=== PATIENT | male | born 1935 | race Caucasian/White ===

== ENCOUNTER 2019-03-04 09:45 | Day surgery (SDC) | payer MEDICARE, BC ==
--- NOTE | 2019-03-04 09:43 | HP ---
DATE OF SURGERY: 03/04/2019 HISTORY OF PRESENT ILLNESS: The patient is an 83 year-old with some epigastric pain, family history of a brother passing away with esophageal cancer, now in need of follow up upper endoscopy. He has seen Dr. Dunaway in the past but asked if we could go ahead and proceed with upper endoscopy at this point. PAST MEDICAL/PAST SURGICAL HISTORY: Prostate removal. Right arm surgery. 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 Colonoscopy in the past. Upper endoscopy in the past by Dr. Dunaway according to the patient. He prefers we go ahead and proceed with upper endoscopy. MEDICATIONS: He takes [id number] AloeCure. Otherwise denies any medication. ALLERGIES: SULFA. FAMILY HISTORY: History of esophageal cancer according to the patient. SOCIAL HISTORY: He denied smoking, drinks occasionally denies alcohol abuse. REVIEW OF SYSTEMS: Fourteen systems reviewed per admission assessment. No chest pain or palpitations other systems negative or noncontributory as above and per preadmission questionnaire. PHYSICAL EXAMINATION: GENERAL: No acute distress. HEENT: Sclerae nonicteric. NECK: No JVD. CHEST: Equal excursion, nonlabored breathing. CVS: Regular rate and rhythm. ABDOMEN: Soft. No peritoneal signs. EXTREMITIES: No significant edema. NEURO: Alert, oriented, moving extremities symmetrically. No gross motor deficits noted. IMPRESSION: History of some epigastric pain at times. Family history of brother passing away from esophageal cancer. He is in need of follow up upper endoscopy for evaluation possible biopsy. Risks and benefits explained in detail including but not limited to bleeding or infection, risk of bowel injury or perforation possibly requiring open procedure, risk of missed or nondiagnosis or incomplete exam possibly requiring barium swallow, other studies or procedures, general risk of anesthesia or sedation but not limited to. He understands and agrees to the planned procedure and will proceed with outpatient EGD possible biopsy as an outpatient under MAC anesthesia.
[~2019-03-04 09:45] MED LIST: Lactated Ringers 1,000 ML IV SCH
[2019-03-04] MEDS ORDERED: Lactated Ringers 1,000 ML IV ONE (09:56)
[2019-03-04] MEDS ORDERED: DIPRIVAN 200 MG/20 ML IV ONE (12:02)
[2019-03-04] MEDS ORDERED: Ketamine HCl 50 MG/ML ONE (12:03)
[2019-03-04 13:35] VITALS: BP 145/78; PULSE 50; O2SAT 98
--- NOTE | 2019-03-04 14:21 | OP ---
SURGERY DATE/TIME: 03/04/2019 1217 PREOPERATIVE DIAGNOSES: 1) Family history of esophageal cancer. 2) Epigastric pain, need for upper endoscopy. POSTOPERATIVE DIAGNOSES: 1) Minimal gastritis or gastropathy. 2) Short segment plus/minus early distal gastroesophagitis versus normal variation of gastroesophageal junction. PROCEDURES: 1) EGD with cold biopsy small bowel to evaluate for celiac sprue. 2) Cold biopsy of the antrum to evaluate for Helicobacter pylori. 3) Cold biopsy distal esophagus to gastroesophageal junction to evaluate for gastroesophagitis versus normal variation of gastroesophageal junction. 4) Random cold biopsies of esophagus to evaluate for eosinophilic esophagitis. SURGEON: Dr. Daryl Roe. ANESTHESIA: MAC. ESTIMATED BLOOD LOSS: Minimal. INDICATIONS: As noted above. Risks and benefits explained in detail and not limited to and consent obtained. DESCRIPTION OF PROCEDURE AND FINDINGS: The patient is taken to the endoscopy room. MAC anesthesia introduced. After official time out and no disagreement with planned procedure, a bite block positioned. Video gastroscope easily passed down the esophagus through the patent pylorus to the junction of the second and third portion of the duodenum. No signs of any ulcers or masses. Given his epigastric complaints, cold biopsy taken to evaluate for celiac sprue. Good hemostasis noted. The scope pulled back in the stomach. He had some mild gastric erythema. A cold biopsy taken to evaluate for Helicobacter pylori. Good hemostasis noted. On retroflex gastroesophageal junction snug against the scope. Scope straightened. Gastroesophageal junction noted to be about 40 to 41 cm. The Z-line was fairly crisp. There was a little bit of jagged edge and one little tiny island whether this is Stahl's or distal gastroesophagitis cold biopsies are taken in this margin. Good hemostasis noted. Otherwise random cold biopsies taken further up in the esophagus to evaluate for eosinophilic esophagitis. Good hemostasis noted. Otherwise there were no signs of any obvious esophageal mucosal lesions on withdrawal up through the esophagus. The patient tolerated the procedure well. Findings discussed with the family out in the waiting area.
== END 2019-03-04 13:36 | disposition home or self-care (01) ==
LOC: SDC 09:45
PROVIDERS: ATTEND Surgery
DX: K29.70 Gastritis, unspecified, without bleeding (principal); Z80.0 Family history of malignant neoplasm of digestive organs
CPT/HCPCS: 87081; 88305; 99100; J2704

== ENCOUNTER 2020-10-18 07:19 | Emergency (ER) | payer MEDICARE, BC ==
--- NOTE | 2020-10-18 07:47 | ERPHSYRPT ---
- History of Present Illness Time Seen by Provider: 10/18/20 07:41 Historian: patient, old records Exam Limitations: no limitations Patient Subjective Stated Complaint: Constipation Triage Nursing Assessment: Patient ambulated back to ED and transferred self to bed. Patient A+O X3. Patient's skin pink, warm and dry. Patient complains of constipation for for 5 days. Last BM was 10/14/2020. Patient denies pain or discomfort, but complains of being "Full". Abdomen soft and round with BS X 4. Patient denies N/V. Patient reports passing gas. Physician History: Pt reports that he was seen in ER 2 days ago for right abd pain and US CT with dye were all negative as well as labs. No pain today but feels full , and alt kirill no vomiting , he has not eaten in last 24 hours. Abd is distended but nontender without peritoneal signs or masses. Denies Hx of heart Dx or afib, but epigastric fullness , so will check EKG and Trops. Timing/Duration: day(s) Activities at Onset: none Quality: other (was right abd pain , now resolved) Abdominal Pain Onset Location: RUQ, RLQ Pain Radiation: no radiation Severity of Pain-Max: moderate Severity of Pain-Current: none Modifying Factors: Improves With: nothing Associated Symptoms: loss of appetite Previous symptoms: different symptoms, recently seen Allergies/Adverse Reactions: No Known Drug Allergies Allergy (Unverified 10/18/20 07:27) Home Medications: Aloe Vera 25 mg PO DAILY 03/04/19 [History] Hx Influenza Vaccination/Date Given: Yes Hx Pneumococcal Vaccination/Date Given: Yes Immunizations Up to Date: Yes Travel Risk - International Travel Have you traveled outside of the country in past 3 weeks: No - Coronavirus Screening Are you exhibiting any of the following symptoms?: No Close contact with a COVID-19 positive Pt in past 14-21 Days: No - Review of Systems Constitutional: No Fever, No Chills Eyes: No Symptoms Ears, Nose, & Throat: No Symptoms Respiratory: No Cough, No Dyspnea Cardiac: No Chest Pain, No Edema, No Syncope Abdominal/Gastrointestinal: Abdominal Pain (right abd pain , now resolved), No Nausea, No Vomiting, No Diarrhea Genitourinary Symptoms: No Dysuria Musculoskeletal: No Back Pain, No Neck Pain Skin: No Symptoms, No Rash Neurological: No Dizziness, No Focal Weakness, No Sensory Changes Psychological: No Symptoms Endocrine: No Symptoms All Other Systems: Reviewed and Negative - Past Medical History Pertinent Past Medical History: Yes Neurological History: No Pertinent History ENT History: No Pertinent History Cardiac History: No Pertinent History Respiratory History: No Pertinent History Endocrine Medical History: No Pertinent History Musculoskeletal History: No Pertinent History GI Medical History: GERD History: No Pertinent History Psycho-Social History: No Pertinent History Male Reproductive Disorders: Prostate Cancer Other Medical History: eye CA. - Past Surgical History Past Surgical History: Yes Neuro Surgical History: No Pertinent History Cardiac: No Pertinent History Respiratory: No Pertinent History Gastrointestinal: No Pertinent History Genitourinary: No Pertinent History Musculoskeletal: Other Male Surgical History: Prostate Surgery Other Surgical History: R wrist reconstruction - Social History Smoking Status: Never smoker Exposure to second hand smoke: No Drug Use: none Patient Lives Alone: No - Nursing Vital Signs Nursing Vital Signs: Initial Vital Signs Temperature 97.8 F 10/18/20 07:29 Pulse Rate 62 10/18/20 07:29 Respiratory Rate 18 10/18/20 07:29 Blood Pressure 148/75 10/18/20 07:29 Pain Scale Pain Intensity 0 - Physical Exam General Appearance: no apparent distress, alert Eye Exam: PERRL/EOMI, eyes nml inspection Ears, Nose, Throat Exam: normal ENT inspection, pharynx normal, moist mucous membranes Neck Exam: normal inspection, non-tender, supple, full range of motion Respiratory Exam: normal breath sounds, lungs clear, No respiratory distress Cardiovascular Exam: regular rate/rhythm, normal heart sounds Gastrointestinal/Abdomen Exam: soft, distention, No tenderness, No mass, No guarding, No pulsatile mass, No rebound, No hernia Male Genitalia Exam: normal genitalia, other (no palable hernias), No hernia Rectal Exam: normal exam, normal rectal tone Back Exam: normal inspection, normal range of motion, No CVA tenderness, No vertebral tenderness Extremity Exam: normal inspection, normal range of motion, pelvis stable Neurologic Exam: alert, oriented x 3, cooperative, normal mood/affect, nml cerebellar function, sensation nml, No motor deficits Skin Exam: normal color, warm, dry SpO2 Interpretation: normal O2 Delivery: Room Air - Course Nursing assessment & vital signs reviewed: Yes EKG Interpreted by Me: Sinus Rhythm, NORMAL AXIS, NORMAL INTERVALS, NORMAL QRS, Non-specific ST Changes - Radiology Exams Chest X-ray Interpretation: Interpreted by me, Reviewed by me, No Pneumonia, No Pneumothorax, Other (scattered granulomata) Abdomen X-ray Interpretation: Interpreted by me, Reviewed by me, Other (scattered bowel gas and stool , nonobst pattern) Ordered Tests: Active Orders 24 hr Category Date Time Status EKG-ER Only STAT Care 10/18/20 07:48 Active Enema STAT Care 10/18/20 07:50 Active Enema STAT Care 10/18/20 08:48 Active IV Insertion STAT Care 10/18/20 07:48 Active NPO (ED) STAT Care 10/18/20 07:48 Active OBSTR/ACUTE ABDOMEN SERIES Stat Exams 10/18/20 07:49 Completed AMYLASE Stat Lab 10/18/20 07:40 Completed CBC W DIFF Stat Lab 10/18/20 07:40 Completed CMP Stat Lab 10/18/20 07:40 Completed LIPASE Stat Lab 10/18/20 07:40 Completed Lactic Acid Stat Lab 10/18/20 07:53 Completed TROPONIN Q3H Lab 10/18/20 07:40 Completed TROPONIN Q3H Lab 10/18/20 11:00 Ordered TROPONIN Q3H Lab 10/18/20 14:00 Ordered TROPONIN Q3H Lab 10/18/20 17:00 Ordered TROPONIN Q3H Lab 10/18/20 20:00 Ordered UA W/RFX UR CULTURE Stat Lab 10/18/20 07:52 Completed Medication Summary Generic Name Dose Route Start Last Admin Trade Name Freq PRN Reason Stop Dose Admin Sodium Chloride 1,000 mls @ 100 mls/hr 10/18/20 08:00 10/18/20 07:54 Sodium Chloride 0.9% 1000 Ml IV 11/17/20 07:59 100 mls/hr .Q10H YOGI Administration Discontinued Medications Generic Name Dose Route Start Last Admin Trade Name Freq PRN Reason Stop Dose Admin Magnesium Hydroxide 30 ml 10/18/20 08:23 10/18/20 08:25 Milk Of Magnesia 30 Ml PO 10/18/20 08:24 30 ml STAT ONE Administration Magnesium Hydroxide Confirm 10/18/20 08:24 Milk Of Magnesia 30 Ml Administered 10/18/20 08:25 Dose 30 ml .ROUTE .[employer] Lab/Rad Data: Laboratory Result Diagrams 10/18/20 07:40 10/18/20 07:40 Laboratory Results 10/18/20 10/18/20 10/18/20 Range/Units 07:53 07:52 07:40 WBC (4.0-10.5) K/mm3 RBC (4.1-5.6) M/mm3 Hgb (12.5-18.0) gm/dl Hct (42-50) % MCV (78-100) fl MCH (26-32) pg MCHC (32-36) g/dl RDW (11.5-14.0) % Plt Count (150-450) K/mm3 MPV (7.5-11.0) fl Gran % (36.0-66.0) % Eos # (Auto) (0-0.5) Absolute Lymphs (auto) (1.0-4.6) Absolute Monos (auto) (0.0-1.3) Lymphocytes % (24.0-44.0) % Monocytes % (0.0-12.0) % Eosinophils % (0.00-5.0) % Basophils % (0.0-0.4) % Absolute Granulocytes (1.4-6.9) Basophils # (0-0.4) Sodium (137-145) mmol/L Potassium (3.5-5.1) mmol/L Chloride (98-107) mmol/L Carbon Dioxide (22-30) mmol/L Anion Gap (5-15) MEQ/L BUN (9-20) mg/dL Creatinine (0.66-1.25) mg/dL Estimated GFR ML/MIN Glucose (74-106) mg/dL Lactic Acid 0.8 (0.4-2.0) Calcium (8.4-10.2) mg/dL Total Bilirubin (0.2-1.3) mg/dL AST (17-59) U/L ALT (0-50) U/L Alkaline Phosphatase (38-126) U/L Troponin I < 0.012 (0.000-0.034) ng/mL Serum Total Protein (6.3-8.2) g/dL Albumin (3.5-5.0) g/dL Amylase (30-110) U/L Lipase (23-300) U/L Urine Color YELLOW (YELLOW) Urine Appearance CLEAR (CLEAR) Urine pH 6.0 (5-6) Ur Specific [place] 1.013 (1.005-1.025) Urine Protein NEGATIVE (Negative) Urine Ketones NEGATIVE (NEGATIVE) Urine Blood SMALL (0-5) Roshan/ul Urine Nitrite NEGATIVE (NEGATIVE) Urine Bilirubin NEGATIVE (NEGATIVE) Urine Urobilinogen NEGATIVE (0-1) mg/dL Ur Leukocyte Esterase NEGATIVE (NEGATIVE) Urine WBC (Auto) NONE (0-5) /HPF Urine RBC (Auto) 0-2 (0-2) /HPF U Hyaline Cast (Auto) 0-2 (0-2) /LPF U Epithel Cells (Auto) RARE (FEW) /HPF Urine Bacteria (Auto) NONE (NEGATIVE) /HPF Urine Mucus (Auto) SLIGHT (NEGATIVE) /HPF Urine Culture Reflexed NO (NO) Urine Glucose NEGATIVE (NEGATIVE) mg/dL 10/18/20 10/18/20 Range/Units 07:40 07:40 WBC 4.8 (4.0-10.5) K/mm3 RBC 4.15 (4.1-5.6) M/mm3 Hgb 13.4 (12.5-18.0) gm/dl Hct 40.1 L (42-50) % MCV 96.6 (78-100) fl MCH 32.3 H (26-32) pg MCHC 33.4 (32-36) g/dl RDW 13.4 (11.5-14.0) % Plt Count 229 (150-450) K/mm3 MPV 10.0 (7.5-11.0) fl Gran % 48.6 (36.0-66.0) % Eos # (Auto) 0.13 (0-0.5) Absolute Lymphs (auto) 1.91 (1.0-4.6) Absolute Monos (auto) 0.42 (0.0-1.3) Lymphocytes % 39.6 (24.0-44.0) % Monocytes % 8.7 (0.0-12.0) % Eosinophils % 2.7 (0.00-5.0) % Basophils % 0.4 (0.0-0.4) % Absolute Granulocytes 2.34 (1.4-6.9) Basophils # 0.02 (0-0.4) Sodium 137 (137-145) mmol/L Potassium 4.2 (3.5-5.1) mmol/L Chloride 101 (98-107) mmol/L Carbon Dioxide 26 (22-30) mmol/L Anion Gap 13.6 (5-15) MEQ/L BUN 18 (9-20) mg/dL Creatinine 1.39 H (0.66-1.25) mg/dL Estimated GFR 51.9 ML/MIN Glucose 110 H (74-106) mg/dL Lactic Acid (0.4-2.0) Calcium 10.0 (8.4-10.2) mg/dL Total Bilirubin 0.80 (0.2-1.3) mg/dL AST 23 (17-59) U/L ALT 14 (0-50) U/L Alkaline Phosphatase 80 (38-126) U/L Troponin I (0.000-0.034) ng/mL Serum Total Protein 7.7 (6.3-8.2) g/dL Albumin 4.4 (3.5-5.0) g/dL Amylase 79 (30-110) U/L Lipase 68 (23-300) U/L Urine Color (YELLOW) Urine Appearance (CLEAR) Urine pH (5-6) Ur Specific [place] (1.005-1.025) Urine Protein (Negative) Urine Ketones (NEGATIVE) Urine Blood (0-5) Roshan/ul Urine Nitrite (NEGATIVE) Urine Bilirubin (NEGATIVE) Urine Urobilinogen (0-1) mg/dL Ur Leukocyte Esterase (NEGATIVE) Urine WBC (Auto) (0-5) /HPF Urine RBC (Auto) (0-2) /HPF U Hyaline Cast (Auto) (0-2) /LPF U Epithel Cells (Auto) (FEW) /HPF Urine Bacteria (Auto) (NEGATIVE) /HPF Urine Mucus (Auto) (NEGATIVE) /HPF Urine Culture Reflexed (NO) Urine Glucose (NEGATIVE) mg/dL - Progress Progress: improved, re-examined Progress Note: 10/18/20 08:27 abd x-ray reviewed by radiologist, Dr. Peoples , who agrees it appears nonacute/nonobstructive pattern, but with lots of stool. Discussed findings with pt and limitations of testing performed here as well as recent CT w/u at [facility] and that these point away from pathology , but th at there still could be some small chance for underlying pathology evolving, including a vascular problem, some type of intermittent torsion or volvulus , and that additional w/u should be considered, including possibly colonoscopy. Further, we advised him that we have not found a precise cause for his original abdominal pain . He understands and chooses to pursue this as outpt with PCP , rather than further w/u in ER or hospital at this time and has the capacity to make this choice. This is reasonable since he is leandro PO in ER and has no pain or abd tenderness at this time, and is passing gas with normal bowel sounds. He is advised to return if any further pain , N/V, in meantime and see his PCP this week to complete workup. 10/18/20 08:52 10/18/20 09:45 Good result from enemas and pt feels better without fullness now. Counseled pt/family regarding: lab results, diagnosis, need for follow-up, rad results - Departure Departure Disposition: Home Clinical Impression: Constipation, Microscopic hematuria, Renal insufficiency, Abdominal pain of unknown etiology Condition: Good Critical Care Time: No Referrals: KIRILL ENCINAS [Primary Care Provider] - Instructions: Constipation, Adult (DC), Acute Abdomen (Belly Pain), Adult (DC), Blood in the Urine (Hematuria), Adult (DC), Chronic Kidney Disease (DC) Additional Instructions: followup with your Dr. for completion of GI workup, trace blood in urine, and renal disease, as well as blood pressure control. We did not find a definite cause for your original abdominal pain - so this workup is important. You may take a teaspoon of the milk of magnesia once or twice a day with lots of water until the bowels are moving regular again. Return meantime if vomiting, abdominal pain recurs , fever, or other symptoms or concerns.
[2020-10-18] MEDS ORDERED: Sodium Chloride 0.9% 1000 ML 1,000 ML ONE (07:54)
[2020-10-18] MEDS ORDERED: Sodium Chloride 0.9% 1000 ML 1,000 ML IV SCH (08:00)
[2020-10-18 08:13] LABS: Absolute Neutrophil Ct (ANC) 2.34 (1.4-6.9); BASOPHIL % 0.4 % (0.0-0.4); Basophil (Absolute #) 0.02 (0-0.4); Eosinophil % 2.7 % (0.00-5.0); Eosinophil (Absolute #) 0.13 (0-0.5); Hematocrit 40.1 % (42-50); Hemoglobin 13.4 gm/dl (12.5-18.0); Lymphocyte (Absolute #) 1.91 (1.0-4.6); Lymphocytes % 39.6 % (24.0-44.0); Mean Cell Volume 96.6 fl (78-100); Mean Corpuscular Hemoglobin 32.3 pg (26-32); Mean Corpuscular Hgb Concent. 33.4 g/dl (32-36); Monocyte (Absolute #) 0.42 (0.0-1.3); Monocytes % 8.7 % (0.0-12.0); Neutrophil % 48.6 % (36.0-66.0); Platelet Count 229 K/mm3 (150-450); Red Blood Count 4.15 M/mm3 (4.1-5.6); Red Cell Distribution Width 13.4 % (11.5-14.0); White Blood Count 4.8 K/mm3 (4.0-10.5)
--- NOTE | 2020-10-18 08:16 | XRAY ---
Indication: Abdomen distention. Constipation 5 days. Comparison: None 2 view abdomen nonacute and nonobstructed with moderate diffuse scattered colonic fecal debris. Multiple pelvic surgical clips. Remaining solid organs are unremarkable. Osseous structures intact with minimal lumbar degenerative spondylosis. Single PA chest demonstrates normal heart and lungs with incidental bibasilar calcified granulomas. Bony thorax intact with minimal degenerative changes and old left lower rib fractures. Impression: 1. Fecal stasis. 2. Nonacute chest with chronic findings.
[2020-10-18] MEDS ORDERED: MILK OF MAGNESIA 30 ML PO ONE (08:23)
[2020-10-18] MEDS ORDERED: MILK OF MAGNESIA 30 ML ONE (08:24)
[2020-10-18 08:30] LABS: ALBUMIN 4.4 g/dL (3.5-5.0); ANION GAP 13.6 MEQ/L (5-15); BILIRUBIN,TOTAL 0.8 mg/dL (0.2-1.3); Creatinine 1 1.39 mg/dL (0.66-1.25); EST GLOMERULAR FILTRATION RATE 51.9 ML/MIN; Potassium 4.2 mmol/L (3.5-5.1); Total Protein 7.7 g/dL (6.3-8.2)
[2020-10-18 08:32] LABS: Appearance CLEAR (CLEAR); Bilirubin NEGATIVE (NEGATIVE); Blood SMALL Ery/ul (0-5); Epithelial Cells RARE /HPF (FEW); Glucose NEGATIVE (NEGATIVE); Hyaline Casts 0-2 /LPF (0-2); Ketones NEGATIVE (NEGATIVE); Leukocyte Esterase NEGATIVE (NEGATIVE); Mucus SLIGHT /HPF (NEGATIVE); Nitrite NEGATIVE (NEGATIVE); Protein,Urine Dip NEGATIVE (Negative); RBC 0-2 /HPF (0-2); Specific Gravity 1.013 (1.005-1.025); Urobilinogen NEGATIVE mg/dL (0-1)
[2020-10-18 08:50] VITALS: O2SAT 97
[2020-10-18 10:02] VITALS: BP 152/78; PULSE 64
== END 2020-10-18 09:59 | disposition home or self-care (01) ==
LOC: ED 07:19
DX: R10.11 Right upper quadrant pain (principal); R10.31 Right lower quadrant pain; K59.00 Constipation, unspecified; R31.29 Other microscopic hematuria; N28.9 Disorder of kidney and ureter, unspecified
CPT/HCPCS: 36000; 36415; 74022; 80053; 81001; 82150; 83605; 83690; 84484; 85025; 93005; 96360; 96361; 99284; A9270-GY